=== PATIENT | male | born 1995 | race Caucasian/White ===

== ENCOUNTER 2018-02-06 16:12 | Emergency (ER) | payer MEDICAID, SELFPAY ==
[2018-02-06] MEDS ORDERED: metroNIDAZOLE 250 MG TAB ONE (17:35)
[2018-02-06] MEDS ORDERED: Doxycycline 100 MG CAP ONE (17:35)
== END 2018-02-06 17:49 | disposition home or self-care (01) ==
LOC: MADERS 16:12
DX: A74.9 Chlamydial infection, unspecified (principal); F17.210 Nicotine dependence, cigarettes, uncomplicated
CPT/HCPCS: 99283

== ENCOUNTER 2018-09-03 15:15 | Emergency (ER) | payer SELFPAY | END 2018-09-03 16:14 | disposition home or self-care (01) | LOC: MADERS 15:15 | DX: L04.1 Acute lymphadenitis of trunk (principal); L03.115 Cellulitis of right lower limb; F17.210 Nicotine dependence, cigarettes, uncomplicated | CPT/HCPCS: 99283 ==